=== PATIENT | female | born 1955 | race Caucasian/White ===

== ENCOUNTER 2023-08-23 08:00 | Outpatient (RCR) | payer MEDICARE, OTHER, SELFPAY ==
--- NOTE | 2023-07-15 09:58 | PT.OPEX ---
[facility] PT [facility] Out[facility] Eval Start: 07/15/23 07:47 Freq: Status: Active Protocol: Document 07/15/23 07:47 AILEENCarlota (Rec: 07/15/23 09:47 KLV [id number]) E-signed By Gabriella Godfrey, PT Physical Therapy Outpatient Evaluation Insurance Information Recert Due Date 10/09/23 Insurance Name Medicare B,Other; See Comments Insurance Information/Comments TFL Medical Diagnosis Right knee pain Treating Diagnosis Right knee pain, limited knee ROM, impaired quad and calf strength, swelling Referring MD Bonner Subjective Subjective Janette reports to PT with primary complaint of right knee pain. She has a history of a right knee scope done many years ago. On 06/10/2023 she injured her knee and leg in a zip lining accident-was trying to stop herself and ended up twisting herself backwards and leg hit the box at the end of the line. She had a laceration over the back of her knee which required closure. She had x-rays in [place] and an MRI scan of her knee at [facility] with results below. She was not able to bear much weight following the incident and mainly rested it /used walker to ambulate and step to gait on stairs. Currently she does not have any restrictions and was advised to gradually progress ROM/strength/activity as able. She was icing in the beginning but has switched to heat. Was given tubigrip for swelling which has been helpful. She currently is limited with activity tolerance with walking however not using AD anymore. She has difficulty descending stairs. She was planning on having R TKA done prior to injury as she has severe OA however now needs to rehab from this and regain ROM/strength prior to having surgery. CT angiogram of the right lower extremity dated 2022 from [facility] shows arthritis in her knee with a nondisplaced plateau fracture PMH: L TKA, R knee scope, heart condition, hypertension, arthritis Pain Comments 8/10 worst arthritis in the mornings 5/10 with swelling in the afternoons Date of Last Physician Visit 07/11/23 Occupation [employer]: sedentary Objective Other/Pertinent Objective Knee ROM: -R 0-7-108 -L 0-124 Calf circumferential measurement at tibial tubercle : -R 39.5 cm -L 34 cm No observable bruising No signs/symptoms of infection or DVT: popliteal incision closed and healing well Soleus ROM: -R 3 fingers from wall -L 1 finger from wall Heel raise: able to perform DL x10, unable to perform SL heel raise B at this time Gait: slight decrease in stance time R LE, minimal toe off R LE *of note laceration also L distal calf covered with bandage today. No observable s /s of infection at this time Hypomobility R>L patella all directions LE Strength (R/L): -Knee Ext: R: 4/5, L: 4+/5 -Knee Flex: R: 4-/5, L: 4+/5 -Hip Abd: R: 4/5, L: 4+/5 -Hip Flx: R: 4/5, L: 4+/5 Pt will demonstrate at least 4 +/5 strength MMT in quad, glut max & glut med to improve dynamic control with SLS activities and gait. Functional Test Performed & Score LEFS: 32/80 Assessment Assessment/Impression Patient is a 67 year old female presenting to physical therapy for evaluation and treatment of right knee pain following zip lining injury 09/22. Patient presents with expected limitations in ROM, strength, balance, swelling and gait. These impairments are limiting the patients ability to walk, negotiate stairs, stand for extended periods. Patient appears motivated to participate in PT and presents with good prognosis to improve mobility, strength, proprioception and return to functional activities with skilled physical therapy intervention. Primary Functional Limitations walk, negotiate stairs, stand for extended periods Plan of Care Rehabilitation Potential Good Physical Therapy Goals In 6 weeks (08/26/23) Pt will demonstrate full and pain free knee ROM in order to perform all ADLs including don/doffing shoes/socks Pt will be able to ascend/ descend 1 flight of stairs reciprocally in order to perform ADLs pain free. Pt will be able to stand for > 30 min with <2/10 pain in order to perform work related tasks In 12 weeks (09/07/23) Pt will exhibit 9 pt improvement in LEFS Outcome measure to demonstrate functional improvement and progress towards goals. Patient will walk for 60 min, reporting pain < 2/10 in order to ambulate in home and in community. Pt will be able to stand for > 60 min with <2/10 pain in order to perform work related tasks and household ADLs Treatment Plan/Direct Interventions Gait Training,Ice/Cold/ Vasopneumatic,Joint Mobilization,Manual Therapy, Neuromuscular Re-ed,Self-Care/ Home Management,Therapeutic Activities,Therapeutic Exercises Frequency/Duration 1x/wk for 6 weeks with additional 4 sessions prn based on progress Patient Will Be Discharged From Therapy Completion of LTG(s), Independent w/HEP, Independently Progressing Evaluation Billing Untimed Code Treatment Minutes 25 Complexity Low Certification Information Initial Certification Date 07/15/23 Ending Certification Date 10/09/23 Provider Signature Shows Agreement With POC & Medical Necessity Physician Signature & Date Requested Please Sign/Date Here Physician Comment/Change : Physician NPI Number #
== END 2023-08-23 09:56 | disposition home or self-care (01) ==
PROVIDERS: PCP Nurse Practitioner Family; Visit Provider Orthopaedic Surgery
DX: S89.91XA Unspecified injury of right lower leg, initial encounter (principal); M25.561 Pain in right knee; Z74.09 Other reduced mobility; R53.1 Weakness; R60.9 Edema, unspecified; Z51.89 Encounter for other specified aftercare
CPT/HCPCS: 97110; 97140; 97161

== ENCOUNTER 2023-12-01 08:19 | Day surgery (SDC) | payer MEDICARE, OTHER, SELFPAY ==
[2023-12-01] VITALS (26 sets, daily range): BP systolic 141–182; BP diastolic 60–85; PULSE 51–76; RESP 12–20; TEMP 35.8–37.1; O2SAT 85–99; BMI 35.5
[2023-12-01] MEDS: CELECOXIB 200 MG CAPSULE PO (08:40)
[2023-12-01] MEDS: ACETAMINOPHEN 500 MG TABLET 1000 MG PO ×3 (08:40→21:06)
[2023-12-01] MEDS: LACTATED RINGERS 1000 ML 1,000 ML 100 ML IV ×2 (08:45→11:32)
[2023-12-01] MEDS: SODIUM CHLORIDE 0.9 % (FLUSH) 10 ML SYRINGE IVF (08:45)
[2023-12-01] MEDS: fentaNYL 100 MCG/2 ML inj IVP (10:17)
[2023-12-01] MEDS: MIDAZOLAM HCL 1 MG/ML inj IVP (10:17)
--- NOTE | 2023-12-01 10:36 | SUR.PREOP ---
TIME?OUT:?1017 PT/kayode ortiz RN/cristy wright MDA?VERIFICATION?OF?SURGICAL?SITE,?PROCEDURE,?AND?CONSENT OBTAINED?PRIOR?TO?INVASIVE?PROCEDURE.
[2023-12-01] MEDS: CEFAZOLIN 2 GM INJ IVP (10:40)
[2023-12-01] MEDS: TRANEXAMIC ACID 100 MG/ML INJ 1000 MG IV (10:47)
--- NOTE | 2023-12-01 12:09 | CRLHL7_ITS ---
For Patients: As a result of the Cures Act, medical imaging exams and procedure reports are released immediately into your electronic medical record. You may view this report before your referring provider. If you have questions, please contact your health care provider. Indication: POST OP TKA Technique: Two views right knee Findings/Impression: Hardware from a right total knee arthroplasty is in satisfactory position. Bone alignment is normal. No sign of acute fracture. Postop changes are within normal limits. Dictated by Dagoberto Cronin MD @ 12/01/2023 2:31:17 PM (Electronically Signed)
--- NOTE | 2023-12-01 12:13 | P.ORPRC_ITS ---
Procedure Note Date of procedure: 12/01/23 Procedure: PREOPERATIVE DIAGNOSIS: Right knee osteoarthritis POSTOPERATIVE DIAGNOSIS: Right knee osteoarthritis NAME OF OPERATION: Right total knee arthroplasty SURGEON: Jose M Bonner MD REPEAT PHOTOCOMPOSING MACHINE OPERATOR: Viky Horton PA-C ANESTHESIA: Spinal ESTIMATED BLOOD LOSS: 0 mL COMPLICATIONS: None SPECIMENS: None DRAINS: None PREOPERATIVE ANTIBIOTICS: Ancef 2 grams, antibiotic impregnated cement IMPLANTS: 1. J&J Attune # 6 narrow posterior stabilized femur 2. #4 revision CRS fixed-bearing tibia, 14 mm x 50 mm cemented stem 3. #6 posterior stabilized, 6 mm fixed-bearing polyethylene 4. 38 patella INDICATIONS: The patient is a 68-year-old with a longstanding history of severe, unrelenting right knee pain secondary to end-stage (grade IV) right knee osteoarthritis. Despite appropriate nonoperative management, including activity modification, anti-inflammatories, [id number]-[id number] pain medication, bracing, physical therapy, and injections they continue to have pain and disability. Operative intervention was offered. The risks, benefits and expected outcomes were discussed in detail. These included but were not limited to: Infection, bleeding, injury to blood vessel or nerve, venous thromboembolism. All questions were answered to their satisfaction. Use of an prosthetic assistant was necessary throughout the case for patient positioning and safety, soft tissue retraction, and closure. PROCEDURE: Spinal anesthesia was administered. The patient was placed supine on the operating table. The prosthetic assistant made sure the patient was positioned appropriately. The lower extremity was prepped and draped in the usual sterile fashion. The limb was exsanguinated with the Noel bandage. The pneumatic tourniquet was inflated to 300 mmHg. A standard anterior incision was made with the knee in flexion. Subcutaneous dissection was sharply taken through fascial layer #1. Full-thickness medial and lateral flaps were elevated. The prosthetic assistant retracted the soft tissues and protected them throughout the case. A standard subvastus approach was made. The patella was subluxed. The infrapatellar fat pad was preserved. The menisci and cruciate ligaments were sharply d?brided. Marginal osteophytes were d?brided with the rongeur. The drill was used to penetrate the femoral canal. The canal was aspirated and irrigated with pulse lavage. The intramedullary femoral guide was placed for a 5-degree valgus cut, removing 10 mm off the distal femur. The saw was used to make the cut. Whitesides line and the trans epicondylar axis were marked. The femoral sizing guide was pinned onto the distal femur. Three degrees of external rotation nicely parallels the transepicondylar axis. Pins were placed for posterior referencing. The four-in-one cutting guide was pinned onto the distal femur. The anterior, posterior, and chamfer cuts were made. The prosthetic assistant protected the collateral ligaments. The box cutting guide was pinned. The box cuts were made. The boxed trial was placed and was an excellent fit. Drill holes for the lugs were made. Attention was then turned to the proximal tibia. The extramedullary tibial guide was placed for a neutral varus/valgus cut with 5 degrees of posterior slope, removing 2 mm based off the medial tibial surface. The prosthetic assistant protected the collateral ligaments and the neurovascular bundle. The saw was used to make the cut. Trial components were placed. The knee was nicely balanced in both flexion and extension. The trial components were removed. The tray was placed in appropriate rotation, parallel to our tibial cutting pins. It was pinned by the prosthetic assistant and the drill x2 was used. The stemmed tibial trial was placed. The punch was used. The tray was removed. The punch was used again. A bone plug was placed in the femoral canal. Attention was then turned to the patella. Chinik patellar thickness was 20 mm. The lobster claw resection guide was used with the 7.5 mm jyotsna. The saw was used to make the cut. Drill holes were made by the prosthetic assistant. The trial was placed and was an excellent fit. Cancellous surfaces were irrigated with pulse lavage and thoroughly dried by the prosthetic assistant. We cemented the tibial component, then the femoral component. We impacted the 6 mm polyethylene onto the tibial tray. The knee was brought into full extension. We then cemented the patellar component. Excessive cement was removed. The cement was allowed to harden. The knee was taken through a range of motion and was found to be nicely balanced in both flexion and extension. The patella tracks centrally. The prosthetic assistant did a three minute dilute Betadine solution soak. The prosthetic assistant irrigated the wound with 3 liters of normal saline via pulse lavage. The prosthetic assistant reapproximated the extensor mechanism with #1 Vicryl in an interrupted [id number] fashion. The prosthetic assistant then ran the extensor mechanism with a #1 PDO Stratafix. The prosthetic assistant closed the subcutaneous tissues with a 3-0 Stratafix and the skin with a running 3-0 Stratafix in a subcuticular fashion. Glue was used to seal the skin. The prosthetic assistant placed a dry dressing, CELSO stocking, and Polar Care. Sponge and needle counts were correct x2. The patient tolerated the procedure well. There were no apparent complications. They were carefully transferred to the hospital bed and taken to the postanesthesia care unit in satisfactory condition. PLAN: The patient will be mobilized with physical therapy. Aspirin will be used for DVT prophylaxis. They will be discharged to home once medically appropriate.
--- NOTE | 2023-12-01 12:35 | W.ANESCHARGE ---
Anesthesia Charges Start Date/Time Anesthesia Start Date: 12/01/23 Anesthesia Start Time: 10:31 Stop Date/Time Anesthesia Stop Date: 12/01/23 Anesthesia Stop Time: 13:01
--- NOTE | 2023-12-01 12:36 | P.NB_ITS ---
Nerve Block Nerve Block Time Seen by Provider: 10:20 Date Seen: 12/01/23 Type of block requested by surgeon for post-operative analgesia: geniculars Side: right Time out performed: Yes Verification of patient name: Yes Verification of date of : Yes Site marking: site marked Name of person performing procedure: Gamal Assistants, if any: olesya Continuous monitoring Was continuous monitoring of O2 sat, B/P, awake overnight monitor, recorded every 15 minutes?: Yes Procedure Checklist: sterile prep, needles and gloves Medications given in 5ml increments after negative aspiration: Ropivicaine %: 0.5 mL: 9 Needle gauge: 25 Patient tolerated procedure well: Yes Block Charges Block Charge (with Pro Fee): Genicular Nerve Block Use of Ultrasound Machine for Block: No
--- NOTE | 2023-12-01 12:36 | P.NB_ITS ---
Nerve Block Nerve Block Time Seen by Provider: 10:20 Date Seen: 12/01/23 Type of block requested by surgeon for post-operative analgesia: adductor canal Side: right Time out performed: Yes Verification of patient name: Yes Verification of date of : Yes Site marking: site marked Name of person performing procedure: Gamal Assistants, if any: Kyle Continuous monitoring Was continuous monitoring of O2 sat, B/P, color television console monitor, recorded every 15 minutes?: Yes Procedure Checklist: sterile prep, needles and gloves Ultrasound guided. Images saved: Yes Medications given in 5ml increments after negative aspiration: Ropivicaine %: 0.5 mL: 20 Needle gauge: 20 Decadron (mg): 10 Precedex (mcg): 25 Patient tolerated procedure well: Yes Additional comments: Needle noted adjacent to nerve Block Charges Block Charge (with Pro Fee): Femoral Nerve Use of Ultrasound Machine for Block: Yes- US Guidance/pain block
--- NOTE | 2023-12-01 13:06 | W.ANESCHARGE ---
Anesthesia Charges Start Date/Time Anesthesia Start Date: 12/01/23 Anesthesia Start Time: 10:31 Stop Date/Time Anesthesia Stop Date: 12/01/23 Anesthesia Stop Time: 13:05
[2023-12-01] MEDS: HYDROmorphone 0.5 mg/0.5 ml inj IVP ×2 (14:02→15:39)
--- NOTE | 2023-12-01 15:34 | PM.IMCN1 ---
Date of Consult Patient: Sim[place] Patient Consult date: 12/01/23 Requesting Physician: Orthopedics Primary Care Provider: Nyla Shipley, SUHA Consult Narrative Reason for consult: s/p R TKA, medical support Narrative: Janette Madison is a 68 year old woman who undergoes elective right total knee arthroplasty today with Dr. Jose M Bonner, orthopedic surgeon. Initial intention was to attempt spinal anesthesia. They were unable to achieve this successfully and thus converted to general anesthesia. No apparent complications. Estimated blood loss 0 mL. Review of Systems Status of ROS: Reports: 10 or more systems reviewed and unremarkable except as noted in History and below Narrative: I reviewed preoperative history and physical dated 11/22/2023. No contraindications to proceed with surgical intervention. Patient has known severe, advanced right gonarthrosis. No longer able to satisfactorily treat through nonsurgical means. Hence, patient elects to proceed with total knee arthroplasty. Laboratory studies obtained on 11/22/2023 include sodium 142, potassium 4.9, glucose 124, BUN 22, creatinine 0.9, EGFR 72. TSH 1.41. White count 6 Only limitation to her activities of Daily Living is the pain associated with her right knee. Denies chest heaviness, pressure, tightness, or pain. Denies dyspnea at rest, dyspnea with exertion, paroxysmal nocturnal dyspnea, orthopnea. Denies cough. Denies syncope or near-syncope. No nausea or vomiting. No palpitations or chest fluttering. No dependent edema. Takes her medications as prescribed. No recent travel, trauma, injury. No recent fevers, rigors, diaphoresis or any other illness. Blood pressures have been much better controlled at home lately. Patient informs me she has been attempting to lose weight and has achieved 30 lb intentional weight loss. Working with her primary care physician to possibly reduce dose of antihypertensive medications. When she was assessed in the clinic for her preoperative evaluation on 11/22/2023, her resting heart rate was 48 beats per minute. Laboratory studies obtained on 11/22/2023 include the following: Sodium 142, potassium 4.9, glucose 124, BUN 22, creatinine 0.89, EGFR 72. TSH 1.41. Total cholesterol 172 triglycerides 113 HDL cholesterol 54 LDL cholesterol 95. White blood cell count 7.1, hemoglobin 14, hematocrit 44, RDW 15.2, normal MCV and MCH, platelet count 185. [facility] Medical History (Updated 12/01/23 @ 15:48 by Yong Coburn MD) Cardiac arrhythmia ?I49.9 - Cardiac arrhythmia, unspecified (ICD-10) Hypothyroid ?E03.9 - Hypothyroidism, unspecified (ICD-10) Allergic rhinitis ?J30.9 - Allergic rhinitis, unspecified (ICD-10) Essential (primary) hypertension ?I10 - Essential (primary) hypertension (ICD-10) Surgical History (Updated 12/01/23 @ 15:46 by Yong Coburn MD) History of hysterectomy ?Z90.710 - Acquired absence of both cervix and uterus (ICD-10) H/O arthroscopy of left knee ?Z98.890 - Other specified postprocedural states (ICD-10) History of repair of ACL ?Z98.890 - Other specified postprocedural states (ICD-10) History of total left knee replacement (~2004) ?Z96.652 - Presence of left artificial knee joint (ICD-10) History of arthroscopy of right knee ?Z98.890 - Other specified postprocedural states (ICD-10) Family History Paternal Grandfather Heart disease Father High blood pressure COPD (chronic obstructive pulmonary disease) Maternal Grandmother Heart disease Social History Smoking Status: Never smoker Do you use any of these nicotine containing products: None Second hand tobacco smoke exposure: No How often do you have a drink containing alcohol: monthly or less AUDIT-C Alcohol total score: 1 Non-prescribed substance use: denies use Caffeine: Yes Meds Home Medications and Allergies Home Medications Medication Instructions Recorded Confirmed Type hydrochlorothiazide 12.5 mg tablet 12.5 mg PO DAILY 06/22/23 12/01/23 History levothyroxine 112 mcg tablet 112 mcg PO DAILY 06/22/23 12/01/23 History losartan 50 mg tablet 50 mg PO DAILY 06/22/23 12/01/23 History metoprolol tartrate 50 mg tablet 50 mg PO BID 06/22/23 12/01/23 History potassium chloride 20 mEq 20 meq PO DAILY 06/22/23 12/01/23 History tablet,extended release(part/cryst) Allergies Allergy/AdvReac Type Severity Reaction Status Date / Time codeine AdvReac Nausea Verified 12/01/23 09:02 diazepam [From Valium] AdvReac Drowsy Verified 12/01/23 09:02 morphine AdvReac Nausea Verified 12/01/23 09:02 trimethobenzamide AdvReac neck and Verified 12/01/23 09:02 [From Tigan] head paralysis Exam Narrative: Exam Narrative: I examined patient in her hospital room. She appears comfortable and in no acute distress. Vision and hearing are grossly normal. Alert and oriented to self, place, time, situation. Friendly, articulate, cooperative. Conjugate gaze. No icterus. Midline septum. Dentition in good repair. Buccal mucosa is moist. Neck is supple. Midline trachea. No JVD, hepatojugular reflux, or carotid bruits. No head or neck lymphadenopathy. Moves all 4 extremities. Lungs are clear to auscultation. No wheezing, rhonchi, or rales. Chest wall excursions are full. No CVA discomfort with thumping. Heart tones with regular rhythm, normal S1-S2. Soft systolic murmur right upper sternal border and left lower sternal border. No gallops or rubs. PMI not laterally displaced. Abdomen with active bowel sounds, soft, nontender. No organomegaly or masses. Extremities without edema. Const: Vital Signs, click to edit/add: Vital Signs - 24 hr 12/01/23 09:07 12/01/23 10:17 12/01/23 10:20 Temperature 97.9 F Pulse Rate 54 L 56 L 53 L Pulse Rate [Pulse Oximeter] Respiratory Rate 16 16 16 Blood Pressure 176/70 H 160/70 H 147/61 H Blood Pressure [Ri ght Arm] Pulse Oximetry 95 95 95 Oxygen Delivery Me thod Room Air Nasal Cannula Nasal Cannula Oxygen Flow Rate 3.5 3.5 12/01/23 10:25 12/01/23 13:00 12/01/23 13:05 Temperature 97.4 F L Pulse Rate 52 L 70 75 Pulse Rate [Pulse Oximeter] Respiratory Rate 16 12 16 Blood Pressure 145/65 H 141/77 H 146/80 H Blood Pressure [Ri ght Arm] Pulse Oximetry 95 94 95 Oxygen Delivery Me thod Nasal Cannula OxyMask OxyMask Oxygen Flow Rate 3.5 10 10 12/01/23 13:10 12/01/23 13:15 12/01/23 13:20 Temperature 97.5 F L Pulse Rate 76 75 71 Pulse Rate [Pulse Oximeter] Respiratory Rate 18 18 18 Blood Pressure 145/85 H 145/83 H 144/81 H Blood Pressure [Ri ght Arm] Pulse Oximetry 98 99 96 Oxygen Delivery Me thod OxyMask OxyMask Blow By Oxygen Flow Rate 10 5 5 12/01/23 13:25 12/01/23 13:32 12/01/23 13:45 Temperature 97.3 F L 96.5 F L Pulse Rate 71 66 59 L Pulse Rate [Pulse Oximeter] Respiratory Rate 16 16 16 Blood Pressure 142/81 H 150/81 H Blood Pressure [Ri ght Arm] 182/81 H Pulse Oximetry 96 96 Oxygen Delivery Me thod Room Air Room Air Room Air Oxygen Flow Rate 12/01/23 14:00 12/01/23 14:15 12/01/23 14:30 Temperature 96.9 F L 97 F L Pulse Rate Pulse Rate [Pulse Oximeter] 55 L 57 L 51 L Respiratory Rate 16 16 16 Blood Pressure Blood Pressure [Ri ght Arm] 167/82 H 169/75 H 167/70 H Pulse Oximetry 94 95 94 Oxygen Delivery Me thod Nasal Cannula Nasal Cannula Nasal Cannula Oxygen Flow Rate 2 2 2 12/01/23 14:45 12/01/23 15:00 12/01/23 15:00 Temperature 97.5 F L 98.0 F Pulse Rate Pulse Rate [Pulse Oximeter] 61 60 60 Respiratory Rate 16 16 Blood Pressure Blood Pressure [Ri ght Arm] 163/73 H 172/72 H Pulse Oximetry 95 97 Oxygen Delivery Me thod Nasal Cannula Nasal Cannula Oxygen Flow Rate 2 2 12/01/23 15:15 Temperature 98.0 F Pulse Rate Pulse Rate [Pulse Oximeter] 60 Respiratory Rate 16 Blood Pressure Blood Pressure [Ri ght Arm] 172/72 H Pulse Oximetry 97 Oxygen Delivery Me thod Nasal Cannula Oxygen Flow Rate 2 Documenting provider has reviewed patient's vital signs: yes Assessment and Plan Assessment and plan (1) Osteoarthritis of right knee: Status: Acute (2) Status post total knee replacement, right: Status: Acute (3) Postoperative hypoxemia: Status: Acute (4) Postoperative bradycardia: Status: Acute (5) Essential (primary) hypertension: Status: Acute Plan 1. Reviewed impression with patient 2. Encourage safe activity. Will work with physical and occupational therapy. 3. Incentive spirometry. 4. Monitor and supply oxygen support as needed. 5. Continue usual antihypertensive medications for now. 6. Recommended patient follow-up with primary care physician in regard to the possibility of possibly decreasing the dose of her beta-diane hereafter such as 25 mg p.o. b.i.d. rather than current dose of 50 mg p.o. b.i.d. 7. Telemetry postoperatively. Consider decrease dose of beta-diane if bradycardia is persistent or worrisome. 8. Agree with perioperative antibiotic prophylaxis. 9. Agree with postoperative venous thromboembolism prophylaxis. 10. Patient agreeable with above stated plans and recommendations.
[2023-12-01] MEDS: CEFAZOLIN 2 GM in 0.9 % SODIUM CHLORIDE Mini-bag 100 ML IVPB (16:47)
[2023-12-01] MEDS: OXYCODONE 5 MG TABLET PO (18:39)
--- NOTE | 2023-12-01 19:43 | PC.NURSE ---
End of shift: Patient is alert and oriented, tolerating a reg diet. dressing to right knee C/D/I. IV is patent and SL. Patient rated pain 5/10 PRN oxy administered. Patient up to chair for meals and BR with walker. Patient's VSS. Sinus Burt on Tele.
[2023-12-01] MEDS: ASPIRIN 81 MG TABLET EC PO (21:06)
[2023-12-01] MEDS: SENNOSIDES 1 TAB TABLET 2 TAB PO (21:06)
[2023-12-01] MEDS: METOPROLOL TARTRATE 50 MG TABLET PO (21:53)
[2023-12-02] MEDS: CEFAZOLIN 2 GM in 0.9 % SODIUM CHLORIDE Mini-bag 100 ML IVPB (01:44)
[2023-12-02] MEDS: ACETAMINOPHEN 500 MG TABLET 1000 MG PO ×2 (02:35→10:43)
[2023-12-02 02:49] VITALS: BP 149/62; PULSE 55; RESP 18; TEMP 36.6; O2SAT 96
[2023-12-02 03:52] VITALS: PULSE 54
[2023-12-02 06:19] LABS: Basophils Absolute Auto 0.01 K/uL (0.00-0.30); Basophils Percent Auto 0.1 % (0.0-3.0); Eosinophils Absolute Auto 0.01 K/uL (0.00-0.50); Eosinophils Percent Auto 0.1 % (0.0-7.0); Hemoglobin* 12.7 gm/dL (12.0-16.0); Immature Granulocytes Abs Auto 0.01 K/uL (0.00-0.30); Immature Granulocytes Pct Auto 0.1 %; Lymphocytes Percent Auto 13.2 % (20-44); Mean Corpuscular HGB Conc 33 gm/dL (32-36); Mean Corpuscular Hemoglobin 30 pg (26-34); Mean Corpuscular Volume 92 fL (80-100); Monocytes Percent Auto 7.3 % (0.0-11.0); Neutrophils Percent Auto 79.2 % (42.0-72.0); Platelet Count* 188 K/uL (140-440); RDW Coefficient of Variation % 14.5 % (11.5-15.5); Red Blood Count 4.25 m/uL (4.00-5.20); White Blood Count* 10.88 K/uL (4.50-11.00)
[2023-12-02 06:24] LABS: Slide Review Reflex No
[2023-12-02 06:35] LABS: Potassium* 4.3 mmol/L (3.6-5.1); Sodium* 140 mmol/L (135-149)
[2023-12-02 06:37] LABS: INR 1.04 (0.91-1.10); Prothrombin Time 14.2 Seconds
[2023-12-02] MEDS: LEVOTHYROXINE 112 MCG TABLET PO (06:37)
[2023-12-02 06:38] LABS: Creatinine* 0.6 mg/dL (0.5-1.5); Est. Creatinine Clearance* 41.76; Estimated Glomerular Filt Rate 99 ml/min
[2023-12-02 06:39] LABS: Blood Urea Nitrogen* 17 mg/dL (7-30)
[2023-12-02 07:00] VITALS: PULSE 60
[2023-12-02 08:21] VITALS: BP 149/99; PULSE 63; RESP 18; TEMP 36.7; O2SAT 97
--- NOTE | 2023-12-02 08:25 | PM.ORPN ---
Subjective Subjective Time Seen by Provider: 07:10 Date Seen: 12/02/23 Principal diagnosis: Status post right knee replacement Interval history: Janette is comfortable this morning. She has ambulated around med surge. This went well. She has no nausea or vomiting. She plans to discharge today. Ortho Exam Narrative Exam Narrative: Alert and oriented x3. Patient is in no acute distress. Converses without labored breathing. Hearing is grossly intact. Ambulates with a walker. Examination of the right lower extremity shows the dressing is intact, no erythema or warmth or sign of infection. Mild effusion. Mild soft tissue edema. No ecchymosis. Bilateral calves are soft and nontender. Quad strength 5/5. CMS intact right lower extremity. Const Vital Signs, click to edit/add: Vital Signs - 24 hr 12/01/23 09:07 12/01/23 10:17 12/01/23 10:20 Temperature 97.9 F Pulse Rate 54 L 56 L 53 L Pulse Rate [Pulse Oximeter] Respiratory Rate 16 16 16 Blood Pressure 176/70 H 160/70 H 147/61 H Blood Pressure [Right Arm] Pulse Oximetry 95 95 95 Oxygen Delivery Method Room Air Nasal Cannula Nasal Cannula Oxygen Flow Rate 3.5 3.5 12/01/23 10:25 12/01/23 13:00 12/01/23 13:05 Temperature 97.4 F L Pulse Rate 52 L 70 75 Pulse Rate [Pulse Oximeter] Respiratory Rate 16 12 16 Blood Pressure 145/65 H 141/77 H 146/80 H Blood Pressure [Right Arm] Pulse Oximetry 95 94 95 Oxygen Delivery Method Nasal Cannula OxyMask OxyMask Oxygen Flow Rate 3.5 10 10 12/01/23 13:10 12/01/23 13:15 12/01/23 13:20 Temperature 97.5 F L Pulse Rate 76 75 71 Pulse Rate [Pulse Oximeter] Respiratory Rate 18 18 18 Blood Pressure 145/85 H 145/83 H 144/81 H Blood Pressure [Right Arm] Pulse Oximetry 98 99 96 Oxygen Delivery Method OxyMask OxyMask Blow By Oxygen Flow Rate 10 5 5 12/01/23 13:25 12/01/23 13:32 12/01/23 13:45 Temperature 97.3 F L 96.5 F L Pulse Rate 71 66 59 L Pulse Rate [Pulse Oximeter] Respiratory Rate 16 16 16 Blood Pressure 142/81 H 150/81 H Blood Pressure [Right Arm] 182/81 H Pulse Oximetry 96 96 Oxygen Delivery Method Room Air Room Air Room Air Oxygen Flow Rate 12/01/23 14:00 12/01/23 14:15 12/01/23 14:30 Temperature 96.9 F L 97 F L Pulse Rate Pulse Rate [Pulse Oximeter] 55 L 57 L 51 L Respiratory Rate 16 16 16 Blood Pressure Blood Pressure [Right Arm] 167/82 H 169/75 H 167/70 H Pulse Oximetry 94 95 94 Oxygen Delivery Method Nasal Cannula Nasal Cannula Nasal Cannula Oxygen Flow Rate 2 2 2 12/01/23 14:45 12/01/23 15:00 12/01/23 15:00 Temperature 97.5 F L 98.0 F Pulse Rate Pulse Rate [Pulse Oximeter] 61 60 60 Respiratory Rate 16 16 Blood Pressure Blood Pressure [Right Arm] 163/73 H 172/72 H Pulse Oximetry 95 97 Oxygen Delivery Method Nasal Cannula Nasal Cannula Oxygen Flow Rate 2 2 12/01/23 15:15 12/01/23 15:30 12/01/23 16:00 Temperature 98.0 F 98.0 F 98.0 F Pulse Rate Pulse Rate [Pulse Oximeter] 60 59 L 60 Respiratory Rate 16 16 16 Blood Pressure Blood Pressure [Right Arm] 172/72 H 167/77 H 151/60 H Pulse Oximetry 97 98 98 Oxygen Delivery Method Nasal Cannula Nasal Cannula Nasal Cannula Oxygen Flow Rate 2 2 2 12/01/23 17:00 12/01/23 17:05 12/01/23 18:00 Temperature 98.0 F 98.0 F Pulse Rate 52 L Pulse Rate [Pulse Oximeter] 59 L 66 Respiratory Rate 16 16 Blood Pressure Blood Pressure [Right Arm] 146/64 H 152/70 H Pulse Oximetry 91 93 Oxygen Delivery Method Room Air Room Air Oxygen Flow Rate 12/01/23 19:00 12/01/23 19:00 12/01/23 19:45 Temperature 98.0 F 98.7 F 98.7 F Pulse Rate Pulse Rate [Pulse Oximeter] 71 63 63 Respiratory Rate 16 20 20 Blood Pressure Blood Pressure [Right Arm] 154/65 H 157/78 H 157/78 H Pulse Oximetry 90 96 Oxygen Delivery Method Room Air Room Air Room Air Oxygen Flow Rate 12/01/23 23:00 12/01/23 23:00 12/02/23 02:49 Temperature 98.2 F 97.8 F Pulse Rate Pulse Rate [Pulse Oximeter] 52 L 55 L Respiratory Rate 18 18 Blood Pressure Blood Pressure [Right Arm] 153/67 H 149/62 H Pulse Oximetry 93 93 96 Oxygen Delivery Method Nasal Cannula Nasal Cannula Nasal Cannula Oxygen Flow Rate 0.5 0.5 1 12/02/23 03:52 Temperature Pulse Rate 54 L Pulse Rate [Pulse Oximeter] Respiratory Rate Blood Pressure Blood Pressure [Right Arm] Pulse Oximetry Oxygen Delivery Method Oxygen Flow Rate Assessment and Plan Assessment and plan (1) Status post total knee replacement, right: Problem details: 12/01/2023 Status: Acute Assessment and Plan: The patient is doing very well at this time. Plan for discharge is today to home if they meet discharge criteria. DVT prophylaxis includes aspirin 81 mg twice daily x1 month, Jonathan stockings x1 month may remove for 1 hr per day, frequent ambulation Remove dressing in 1 week. Observe wound and phone Orthopedics with any questions or concerns Return to clinic in 1 week for a wound check Return to clinic in 6 weeks with surgeon Minimize narcotic use. Wean off and discontinue soon as possible. Activities as tolerated. No strenuous activity. Outpatient physical therapy as scheduled. Ice and elevate the operative extremity. No restriction on ice.
[2023-12-02] MEDS: SENNOSIDES 1 TAB TABLET 2 TAB PO (08:32)
[2023-12-02] MEDS: hydroCHLOROthiazide 12.5 MG CAPSULE PO (08:32)
[2023-12-02] MEDS: POTASSIUM CHLORIDE 10 MEQ CAPSULE ER 20 MEQ PO (08:32)
[2023-12-02] MEDS: ASPIRIN 81 MG TABLET EC PO (08:34)
[2023-12-02] MEDS: OXYCODONE 5 MG TABLET PO (08:34)
[2023-12-02] MEDS: METOPROLOL TARTRATE 50 MG TABLET PO (08:34)
[2023-12-02] MEDS: LOSARTAN POTASSIUM 50 MG TABLET PO (08:35)
[2023-12-02 10:44] VITALS: BP 150/63; RESP 18
== END 2023-12-02 10:45 | disposition home or self-care (01) ==
LOC: OR 08:22 → MEDSURG 08:24
PROVIDERS: PCP Nurse Practitioner Family; Visit Provider Orthopaedic Surgery
PROC: (CPT 27447; principal; 2023-12-01 10:15)
DX: M17.11 Unilateral primary osteoarthritis, right knee (principal); G89.18 Other acute postprocedural pain; I10 Essential (primary) hypertension; R09.02 Hypoxemia; I97.191 Other postprocedural cardiac functional disturbances following other surgery; R00.1 Bradycardia, unspecified
CPT/HCPCS: 27447; 01402; 36415; 64447; 64454; 73560; 76942; 82565; 84132; 84295; 84520; 85025; 85610; 97110; 97116; 97161; 97165; 97535; A9270; C1776; J0690; J1100; J1170; J1630; J2250; J2405; J2704; J2795; J3010; J3490; J7120

== ENCOUNTER 2024-12-10 13:34 | Outpatient (CLI) | payer MEDICARE, OTHER, SELFPAY | END 2024-12-10 13:35 | disposition home or self-care (01) | PROVIDERS: PCP Nurse Practitioner Family; Visit Provider Orthopaedic Surgery | DX: M25.511 Pain in right shoulder (principal); M75.121 Complete rotator cuff tear or rupture of right shoulder, not specified as traumatic; S46.811A Strain of other muscles, fascia and tendons at shoulder and upper arm level, right arm, initial encounter; S46.211A Strain of muscle, fascia and tendon of other parts of biceps, right arm, initial encounter; M19.011 Primary osteoarthritis, right shoulder; M25.411 Effusion, right shoulder | CPT/HCPCS: 73221 ==

== ENCOUNTER 2025-01-08 07:29 | Day surgery (SDC) | payer MEDICARE, OTHER, SELFPAY ==
[2025-01-08] VITALS (23 sets, daily range): BP systolic 103–151; BP diastolic 52–95; PULSE 48–79; RESP 12–34; TEMP 36.3–36.9; O2SAT 89–97; BMI 41.0
[2025-01-08] MEDS: SODIUM CHLORIDE 0.9 % (FLUSH) 10 ML SYRINGE IVF (08:00)
[2025-01-08] MEDS: ACETAMINOPHEN 500 MG TABLET 1000 MG PO ×3 (08:00→20:32)
[2025-01-08] MEDS: LACTATED RINGERS 1000 ML 1,000 ML 100 ML IV ×2 (08:00→11:22)
[2025-01-08] MEDS: CELECOXIB 200 MG CAPSULE PO (08:10)
[2025-01-08] MEDS: fentaNYL 100 MCG/2 ML inj IVP (08:51)
[2025-01-08] MEDS: MIDAZOLAM HCL 1 MG/ML inj IVP (08:51)
--- NOTE | 2025-01-08 08:59 | SUR.PREOP ---
TIME?OUT:?0850 PT/RN/MDA?VERIFICATION?OF?SURGICAL?SITE,?PROCEDURE,?AND?CONSENT OBTAINED?PRIOR?TO?INVASIVE?PROCEDURE.
[2025-01-08] MEDS: CEFAZOLIN 2 GM INJ IVP (09:54)
[2025-01-08] MEDS: TRANEXAMIC ACID 100 MG/ML INJ 1000 MG IV (09:54)
--- NOTE | 2025-01-08 10:08 | W.ANESCHARGE ---
Anesthesia Charges Start Date/Time Anesthesia Start Date: 01/08/25 Anesthesia Start Time: 09:21 Stop Date/Time Anesthesia Stop Date: 01/08/25 Anesthesia Stop Time: 12:00 Coding CPT Codes CPT Codes: ANESTH SHOULDER REPLACEMENT - 89208 ([id number]) P2 - PATIENT W/MILD SYST DISEASE, QK - EDUCATIONAL ADMINISTRATION TEACHER 2-4 CNCRNT ANES PROC, QX - SERVICE ORDER TAKER SVC W/ MD MED DIRECTION
--- NOTE | 2025-01-08 10:09 | W.PM.NB ---
Nerve Block Nerve Block Time Seen by Provider: 08:52 Date Seen: 01/08/25 Type of block requested by surgeon for post-operative analgesia: supraclavicular Side: right Time out performed: Yes Verification of patient name: Yes Verification of date of : Yes Site marking: site marked Name of person performing procedure: Gamal Continuous monitoring Was continuous monitoring of O2 sat, B/P, desk monitor, recorded every 15 minutes?: Yes Procedure Checklist: sterile prep, needles and gloves Ultrasound guided. Images saved: Yes Medications given in 5ml increments after negative aspiration: Marcaine %: 0.5 mL: 15 Needle gauge: 22 Precedex (mcg): 25 Patient tolerated procedure well: Yes Block Charges Block Charge (with Pro Fee): Brachial Plexus Use of Ultrasound Machine for Block: Yes- US Guidance/pain block
--- NOTE | 2025-01-08 11:21 | PM.ORPRC ---
Procedure Note Date of procedure: 01/08/25 Procedure: PREOPERATIVE DIAGNOSIS: Right shoulder rotator cuff tear arthropathy POSTOPERATIVE DIAGNOSIS: Right shoulder rotator cuff tear arthropathy NAME OF OPERATION: Right upper extremity reverse shoulder arthroplasty SURGEON: Jose M Bonner MD SOMMELIER: Viky Horton PA-C, Shadi aSntos PA-C ANESTHESIA: General endotracheal ESTIMATED BLOOD LOSS: 100 mL COMPLICATIONS: None SPECIMENS: None DRAINS: None PREOPERATIVE ANTIBIOTICS: Ancef 2 grams IMPLANTS: 1. Tornier 25mm x 35mm baseplate 2. 36mm standard glenosphere 3. 5B humeral stem 4. High eccentric +0 humeral tray 5. 36mm +6 polyethylene INDICATIONS: The patient is a 69-year-old with a longstanding history of severe, unrelenting right shoulder pain secondary to rotator cuff tear arthropathy. Despite appropriate nonoperative management, including activity modification, anti-inflammatories, [id number] pain medication, physical therapy, and injections they continue to have pain and disability. Operative intervention was offered. The risks, benefits and expected outcomes were discussed in detail. These included but were not limited to: Infection, bleeding, injury to blood vessel or nerve, venous thromboembolism. All questions were answered to their satisfaction. Use of an dairy and food laboratory assistant was necessary throughout the case for patient positioning and safety, soft tissue retraction, and closure. PROCEDURE: General anesthesia was administered. The patient was placed in the lazy beach chair position on the operating room table. The right upper extremity was prepped and draped in the usual sterile fashion. A standard deltopectoral incision was made. Subcutaneous dissection was taken with electrocautery to the deltopectoral interval. The cephalic vein was mobilized, lateral branches were cauterized. The vein was ligated and divided. We bluntly entered the deltopectoral interval. We freed up the deltoid. The upper 1/3 of the insertion of the pectoralis was divided with cautery. The static retractor was placed. The clavipectoral fascia and CA ligament were divided. The circumflex vessels were controlled with electrocautery. The biceps was torn and retracted out of the field. Two fiberWire sutures were placed in the subscapularis. The subscap was subperiosteally elevated off of the lesser tuberosity. The humeral head was delivered into the wound. The entirety of the rotator cuff is torn and retracted. There is a central area of at least grade 3 change on the humeral head. The intramedullary humeral cutting guide was placed. We made the cut at the anatomic neck, in 30? of retroversion. Humeral sounds were used to assess the diameter of the canal. The broach was placed and had good rotational stability. The calcar reamer was used and the protective base plate cover was placed. Attention was then turned to the glenoid. Hohmann retractors were placed posteriorly. The labrum and biceps stump were sharply debrided. The origin of the inferior glenohumeral ligaments were subperiosteally released off of the glenoid. The drill guide was placed. The guide pin was placed in 0? of cephalic tilt. The reamer was used to bleeding bone. The central drill was used x2. The tap was used. The standard base plate was placed. This had excellent purchase. Locking screws x 2 were placed. The glenosphere was placed, the set screw was tightened. Attention then returned to the humerus. We placed a high eccentric standard base plate and standard poly. We reduced the shoulder and took it through a range of motion. It was found to be stable with appropriate soft tissue tension. Trial humeral components were removed. We placed #2 FiberWire sutures in the lesser tuberosity for subsequent subscap repair. We assembled the humeral component on the back table. We placed it in the center of our subscapularis repair sutures and tapped it down to our humeral cut. This had excellent purchase. The shoulder was reduced and again was found to be stable with appropriate soft tissue tension. We did a 3 min dilute Betadine solution soak. We irrigated the wound with 3 L of normal saline via pulse lavage. We repaired the subscapularis to the lesser tuberosity with our previously placed FiberWire sutures. The deltopectoral interval was loosely reapproximated with an 0 Vicryl in an interrupted [id number] fashion. Subcutaneous tissues were closed with the 2-0 Vicryl and a running 3-0 Monocryl suture. The skin was sealed with glue. A dry dressing and sling were applied. Sponge and needle counts were correct x2. The patient tolerated the procedure well, there were no apparent complications. They were awakened and extubated in the operating room, taken to the postanesthesia care unit in satisfactory condition. PLAN: The patient will be mobilized with physical therapy. The sling will be used for 6 weeks postoperatively. Active range of motion in forward flexion and abduction as tolerates. No external rotation greater than 0? for 6 weeks postoperatively. They will be discharged to home once medically appropriate.
--- NOTE | 2025-01-08 12:02 | W.ANESCHARGE ---
Anesthesia Charges Start Date/Time Anesthesia Start Date: 01/08/25 Anesthesia Start Time: 09:21 Stop Date/Time Anesthesia Stop Date: 01/08/25 Anesthesia Stop Time: 12:00 Coding CPT Codes CPT Codes: ANESTH SHOULDER REPLACEMENT - 36204 ([id number]) P3 - PATIENT W/SEVERE SYS DISEASE, QK - MEDIA DEVELOPER 2-4 CNCRNT ANES PROC, QX - SHIRT IRONER SUPERVISOR SVC W/ MD MED DIRECTION
[2025-01-08] MEDS: LACTATED RINGERS 1000 ML 1,000 ML 75 ML IV (13:00)
[2025-01-08 13:27] LABS: Hepatitis B Surface Antigen* Negative (Negative)
[2025-01-08 13:37] LABS: HIV 1/2/P24 Combo Screen* Negative (Negative)
[2025-01-08 13:45] LABS: Hepatitis C Virus Antibody* Negative (Negative)
[2025-01-08] MEDS: BENZOCAINE/MENTHOL 1 EACH LOZENGE MUCOUS MEM (14:54)
--- NOTE | 2025-01-08 15:14 | PM.IMCN1 ---
Date of Consult Patient: [place]ba Patient Consult date: 01/08/25 Requesting Physician: Orthopedics Primary Care Provider: Nyla Shipley CNP Consult Narrative Reason for consult: Medical management Narrative: Janette Madison is a 69 year old female past medical history significant for hypertension, diabetes mellitus type 2, hyperlipidemia, cardiac arrhythmia, allergic rhinitis, hypothyroidism is POD#0 s/p right upper extremity reverse shoulder arthroplasty, Dr. Bonner. There have been no perioperative complications or nursing concerns reported. Estimated total blood loss documented as 100 ml. Updated and reviewed the active medical problems, past medical history, past surgical history, social history, allergies and medications in our electronic EMR. Postoperatively, patient reports very little pain. Block of right shoulder slowly beginning to wear off. Able to move 4th and 5th digits. Has a mild headache. Denies dizziness. Denies chest pain or shortness of breath. Has been mildly nauseous but this is not uncommon for her postoperatively. Usually manages with crackers and bhargavi irais. Review of Systems Narrative: REVIEW OF SYSTEMS: Complete review of systems performed and negative unless otherwise stated in HPI or below. [facility] Medical History (Updated 01/08/25 @ 16:09 by Audelia Steen PA-C) Diabetes mellitus type 2, noninsulin dependent ?E11.9 - Type 2 diabetes mellitus without complications (ICD-10) Cardiac murmur ?R01.1 - Cardiac murmur, unspecified (ICD-10) Hyperlipidemia ?E78.5 - Hyperlipidemia, unspecified (ICD-10) Postoperative hypoxemia ?R09.02 - Hypoxemia (ICD-10) ?Z98.890 - Other specified postprocedural states (ICD-10) Postoperative bradycardia ?I97.89 - Other postprocedural complications and disorders of the circulatory system, not elsewhere classified (ICD-10) Rotator cuff tear, right ?M75.101 - Unspecified rotator cuff tear or rupture of right shoulder, not specified as traumatic (ICD-10) Osteoarthritis of right shoulder ?M19.011 - Primary osteoarthritis, right shoulder (ICD-10) Arthritis of right acromioclavicular joint ?M19.011 - Primary osteoarthritis, right shoulder (ICD-10) New onset type 2 diabetes mellitus ?E11.9 - Type 2 diabetes mellitus without complications (ICD-10) Cardiac arrhythmia ?I49.9 - Cardiac arrhythmia, unspecified (ICD-10) Hypothyroid ?E03.9 - Hypothyroidism, unspecified (ICD-10) Allergic rhinitis ?J30.9 - Allergic rhinitis, unspecified (ICD-10) Essential (primary) hypertension ?I10 - Essential (primary) hypertension (ICD-10) Surgical History Status post total knee replacement, 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) ?Z96.651 - Presence of right artificial knee joint (ICD-10) History of arthroplasty of right knee (12/01/23) ?Z96.651 - Presence of right artificial knee joint (ICD-10) History of hysterectomy ?Z90.710 - Acquired absence of both cervix and uterus (ICD-10) H/O arthroscopy of left knee ?Z98.890 - Other specified postprocedural states (ICD-10) History of repair of ACL ?Z98.890 - Other specified postprocedural states (ICD-10) History of total left knee replacement (~2004) ?Z96.652 - Presence of left artificial knee joint (ICD-10) History of arthroscopy of right knee ?Z98.890 - Other specified postprocedural states (ICD-10) Family History Paternal Grandfather Heart disease Father High blood pressure COPD (chronic obstructive pulmonary disease) Maternal Grandmother Heart disease Social History What is your current living situation?: I presently have a place to live Problems where you live: no known problems In past 12 months, lack of transportation kept you from medical appts, meetings, work, or getting things needed for daily living: no In the past 12 mos, have been you worried that your food would run out before you had money to buy more?: never true In the past 12 mos, the food you bought just didn't last and you didn't have money to buy more?: never true Highest level of school completed/degree received: Associate degree: occupational, technical, vocational program Smoking Status: Never smoker Do you use any of these nicotine containing products: None Second hand tobacco smoke exposure: No How often do you have a drink containing alcohol: 2-4 times a month Alcohol type: wine and hard liquor How many standard drinks containing alcohol do you have on a typical day: 1 or 2 How often do you have six or more drinks on one occasion: Never AUDIT-C Alcohol total score: 2 Non-prescribed substance use: denies use Caffeine: Yes How often does anyone, including family, friends and others, physically hurt you: never How often does anyone, including family, friends and others, insult or talk down to you: never How often does anyone, including family, friends and others, threaten you with harm: never How often does anyone, including family, friends and others, scream or curse at you: never service: No Meds Home Medications and Allergies Home Medications ?Medication ?Instructions ?Recorded ?Confirmed ?Type hydrochlorothiazide 12.5 mg tablet 12.5 mg PO DAILY 06/22/23 01/08/25 History levothyroxine 112 mcg tablet 112 mcg PO DAILY 06/22/23 01/08/25 History losartan 50 mg tablet 50 mg PO DAILY 06/22/23 01/08/25 History metoprolol tartrate 50 mg tablet 50 mg PO BID 06/22/23 01/08/25 History potassium chloride 20 mEq 20 meq PO DAILY 06/22/23 01/08/25 History tablet,extended release(part/cryst) atorvastatin 40 mg tablet 40 mg PO HS 01/04/25 01/08/25 History metformin 500 mg tablet 500 mg PO BID 01/04/25 01/08/25 History Allergies Allergy/AdvReac Type Severity Reaction Status Date / Time Sulfa (Sulfonamide Allergy angioedema Verified 01/08/25 09:07 Antibiotics) codeine AdvReac Nausea Verified 01/08/25 09:07 diazepam (From Valium) AdvReac Drowsy Verified 01/08/25 09:07 morphine AdvReac Nausea Verified 01/08/25 09:07 trimethobenzamide (From AdvReac neck and Verified 01/08/25 09:07 Tigan) head paralysis Exam Narrative: Exam Narrative: PHYSICAL EXAM General: Pleasant, conversant, NAD HEENT: Normocephalic, atraumatic, sclera white, EOMI, oral mucosa moist Cardiovascular: RRR, S1S2. No pitting edema Pulmonary: CTA bilaterally without rhonchi, rales, expiratory wheezes. No dyspnea Neurological: Alert, answering questions appropriately, cranial nerves intact, no focal findings Extremities: No gross joint deformity or swelling. Postoperative dressing in place, dry. Immobilizer in place. Neurovascularly intact Skin: Warm, dry. Const: Vital Signs, click to edit/add: Vital Signs - 24 hr 01/08/25 07:47 01/08/25 08:52 01/08/25 08:55 Temperature 98.5 F Pulse Rate 48 L 53 L 50 L Respiratory Rate 16 16 16 Blood Pressure 151/69 H 147/61 H 145/84 H Pulse Oximetry 96 96 92 Oxygen Delivery Me thod Room Air Nasal Cannula Nasal Cannula Oxygen Flow Rate 2 4 01/08/25 09:00 01/08/25 11:55 01/08/25 12:00 Temperature 97.8 F Pulse Rate 49 L 64 65 Respiratory Rate 16 12 16 Blood Pressure 130/66 136/67 134/65 Pulse Oximetry 97 93 92 Oxygen Delivery Me thod Nasal Cannula OxyMask OxyMask Oxygen Flow Rate 4 10 10 01/08/25 12:05 01/08/25 12:10 01/08/25 12:15 Temperature Pulse Rate 74 67 61 Respiratory Rate 22 34 H 18 Blood Pressure 116/52 L 112/60 112/54 L Pulse Oximetry 93 94 94 Oxygen Delivery Me thod OxyMask OxyMask OxyMask Oxygen Flow Rate 10 10 8 01/08/25 12:20 01/08/25 12:25 01/08/25 12:30 Temperature 97.6 F Pulse Rate 59 L 65 65 Respiratory Rate 18 18 18 Blood Pressure 111/60 104/75 103/58 L Pulse Oximetry 96 96 95 Oxygen Delivery Me thod OxyMask OxyMask Nasal Cannula OxyM ask Oxygen Flow Rate 6 6 3 01/08/25 12:40 01/08/25 13:00 01/08/25 13:15 Temperature 97.7 F 97.7 F 97.4 F L Pulse Rate 61 57 L 56 L Respiratory Rate 18 18 18 Blood Pressure 122/68 120/56 L 128/95 H Pulse Oximetry 92 91 94 Oxygen Delivery Me thod Nasal Cannula Nasal Cannula Nasal Cannula Oxygen Flow Rate 3 3 3 01/08/25 13:30 01/08/25 13:45 01/08/25 14:00 Temperature 97.4 F L 97.5 F L Pulse Rate 56 L 54 L 57 L Respiratory Rate 16 18 18 Blood Pressure 112/59 L 118/52 L 120/60 Pulse Oximetry 94 93 93 Oxygen Delivery Me thod Nasal Cannula Nasal Cannula Nasal Cannula Oxygen Flow Rate 3 3 3 01/08/25 14:30 Temperature Pulse Rate 63 Respiratory Rate 16 Blood Pressure 115/52 L Pulse Oximetry 93 Oxygen Delivery Me thod Nasal Cannula Oxygen Flow Rate 2 Assessment and Plan Assessment and plan (1) Osteoarthritis of right shoulder: Problem comment: -POD#0 s/p right upper extremity reverse shoulder arthroplasty, Dr. Bonner -perioperative management including pain management and anticoagulation per Orthopedic surgery -encourage postoperative pulmonary hygiene -PT OT consults -plan to discharge home with spose tomorrow Status: Acute (2) Essential (primary) hypertension: Problem comment: Continue losartan, metoprolol, HCTZ, potassium Status: Acute (3) Hyperlipidemia: Problem comment: Has been prescribed Lipitor but has not yet started. Plans to do so on Status: Acute (4) Diabetes mellitus type 2, noninsulin dependent: Problem comment: A1c 7.8, new dx as of December 2024. Previously managed hyperglycemia with diet and exercise. Has been prescribed metformin but has not yet started this. Plans to start on Glucose checks bid Status: Acute (5) Cardiac arrhythmia: Problem comment: Given h/o, financial management consultant post operatively Status: Acute Total Time Spent Total Time Spent: Today I spent 60 minutes seeing the patient, discussing the patient with ER staff, reviewing Expanse and Epic notes/diagnostics, discussing the care plan with our team that includes social work, PT/OT, pharmacy, RT, detention and documenting my impressions and plan in the medical record.
[2025-01-08] MEDS: CEFAZOLIN 2 GM in 0.9 % SODIUM CHLORIDE Mini-bag 100 ML IVPB (15:59)
[2025-01-08] MEDS: ONDANSETRON 2 MG/ML inj 4 MG IVP (16:16)
[2025-01-08] MEDS: METOPROLOL TARTRATE 50 MG TABLET PO (20:33)
--- NOTE | 2025-01-08 22:47 | PC.NURSE ---
Patient arrived to floor after right shoulder surgery. Dressing clean, dry intact and patient reports no pain during the shift. Scheduled tylenol given and patient stating fingers are still numb. CMS of right extremity intact. Patient nauseated and 1 bout of emesis. PRN zofran administered. Able to eat/drink after and no nausea/vomiting. Patient reports headache that is relieved with scheduled tylenol and eating/drinking. Up, ambulating to the chair and bathroom with SBA. IV fluids turned off- PO intake adequate and patient voiding. Oxygen remained on patient after recovery and into the night for due to oxygen saturation <90%. Before bed, patient able to maintain O2 >90% without supplemental oxygen, but once she falls asleep O2 <88%. Alarms wake patient and able to recover independently. Otherwise vitally stable. Nursing to continue to monitor.
[2025-01-09 00:15] VITALS: BP 120/61; PULSE 55; PULSE 58; RESP 18; TEMP 36.8; O2SAT 93
[2025-01-09] MEDS: CEFAZOLIN 2 GM in 0.9 % SODIUM CHLORIDE Mini-bag 100 ML IVPB (00:29)
[2025-01-09] MEDS: ACETAMINOPHEN 500 MG TABLET 1000 MG PO ×2 (02:25→08:54)
[2025-01-09 02:36] VITALS: BP 127/45; PULSE 62; RESP 20; TEMP 36.6; O2SAT 93
[2025-01-09 06:34] LABS: Hematocrit* 41.7 % (33.0-51.0); Hemoglobin* 13.4 gm/dL (12.0-16.0); Mean Corpuscular HGB Conc 32 gm/dL (32-36); Mean Corpuscular Hemoglobin 31 pg (26-34); Mean Corpuscular Volume 95 fL (80-100); Platelet Count* 167 K/uL (140-440); Red Blood Count* 4.37 m/uL (4.00-5.20); White Blood Count* 8.31 K/uL (4.50-11.00)
[2025-01-09 06:42] LABS: Slide Review Reflex No
[2025-01-09 06:44] LABS: Potassium* 3.9 mmol/L (3.6-5.1); Sodium* 139 mmol/L (135-149)
[2025-01-09 06:47] LABS: Blood Urea Nitrogen* 13 mg/dL (7-30); Creatinine* 0.8 mg/dL (0.5-1.5); Est. Creatinine Clearance* 41.19; Estimated Glomerular Filt Rate 81 ml/min
[2025-01-09] MEDS: LEVOTHYROXINE 112 MCG TABLET PO (07:00)
--- NOTE | 2025-01-09 07:27 | PC.NURSE ---
END OF SHIFT NOTE: PT PLEASANT AND COOPERATIVE. A&Ox3. DENIES CP, SOB, N/V. AMBULATES WITH SBA. VSS ON 1.5L OF SUPPLEMENTAL O2 TO KEEP SPO2 >90%; AFEBRILE. OFF OF OXYGEN WITH SATURATIONS >90% PT REPORTS PAIN 3/10 WITH RELIEF FROM ACTIVE ICE, SUPPORT WITH PILLOWS AND MEDICATION (SEE EMAR). CALL LIGHT WITHIN PT?S REACH.
[2025-01-09] MEDS: HYDROmorphone 2 MG TABLET PO (07:28)
[2025-01-09 07:46] VITALS: BP 139/85; PULSE 66; RESP 18; TEMP 37.1; O2SAT 96
[2025-01-09 08:11] VITALS: PULSE 69
--- NOTE | 2025-01-09 08:44 | PM.ORPN ---
Subjective Subjective Time Seen by Provider: 07:45 Date Seen: 01/09/25 Principal diagnosis: Status post right reverse total shoulder arthroplasty Interval history: Janette feels her block is wearing off. She can feel pain in the anterior and posterior shoulder. She also has movement in feeling in her hand on the right. Ortho Exam Narrative Exam Narrative: Alert and oriented x3. Patient is in no acute distress. Converses without labored breathing. Hearing is grossly intact. Ambulates well. Examination of the right shoulder shows the dressing is intact. Soft tissue edema is present. Ecchymosis is present. No edema of the lower arm hand or fingers. Arm is in a sling. She is able to extend and flex her wrist and flex and extend her fingers. Sensation is present in the hand and fingers. No erythema or warmth or sign of infection. Const Vital Signs, click to edit/add: Vital Signs - 24 hr 01/08/25 08:52 01/08/25 08:55 01/08/25 09:00 Temperature Pulse Rate 53 L 50 L 49 L Pulse Rate [Left Pulse Oximeter] Pulse Rate [Right Pulse Oximeter] Respiratory Rate 16 16 16 Blood Pressure 147/61 H 145/84 H 130/66 Blood Pressure [Left Arm] Pulse Oximetry 96 92 97 Oxygen Delivery Method Nasal Cannula Nasal Cannula Nasal Cannula Oxygen Flow Rate 2 4 4 01/08/25 11:55 01/08/25 12:00 01/08/25 12:05 Temperature 97.8 F Pulse Rate 64 65 74 Pulse Rate [Left Pulse Oximeter] Pulse Rate [Right Pulse Oximeter] Respiratory Rate 12 16 22 Blood Pressure 136/67 134/65 116/52 L Blood Pressure [Left Arm] Pulse Oximetry 93 92 93 Oxygen Delivery Method OxyMask OxyMask OxyMask Oxygen Flow Rate 10 10 10 01/08/25 12:10 01/08/25 12:15 01/08/25 12:20 Temperature 97.6 F Pulse Rate 67 61 59 L Pulse Rate [Left Pulse Oximeter] Pulse Rate [Right Pulse Oximeter] Respiratory Rate 34 H 18 18 Blood Pressure 112/60 112/54 L 111/60 Blood Pressure [Left Arm] Pulse Oximetry 94 94 96 Oxygen Delivery Method OxyMask OxyMask OxyMask Oxygen Flow Rate 10 8 6 01/08/25 12:25 01/08/25 12:30 01/08/25 12:40 Temperature 97.7 F Pulse Rate 65 65 61 Pulse Rate [Left Pulse Oximeter] Pulse Rate [Right Pulse Oximeter] Respiratory Rate 18 18 18 Blood Pressure 104/75 103/58 L 122/68 Blood Pressure [Left Arm] Pulse Oximetry 96 95 92 Oxygen Delivery Method OxyMask Nasal Cannula OxyMask Nasal Cannula Oxygen Flow Rate 6 3 3 01/08/25 13:00 01/08/25 13:15 01/08/25 13:30 Temperature 97.7 F 97.4 F L 97.4 F L Pulse Rate 57 L 56 L 56 L Pulse Rate [Left Pulse Oximeter] Pulse Rate [Right Pulse Oximeter] Respiratory Rate 18 18 16 Blood Pressure 120/56 L 128/95 H 112/59 L Blood Pressure [Left Arm] Pulse Oximetry 91 94 94 Oxygen Delivery Method Nasal Cannula Nasal Cannula Nasal Cannula Oxygen Flow Rate 3 3 3 01/08/25 13:45 01/08/25 14:00 01/08/25 14:30 Temperature 97.5 F L Pulse Rate 54 L 57 L 63 Pulse Rate [Left Pulse Oximeter] Pulse Rate [Right Pulse Oximeter] Respiratory Rate 18 18 16 Blood Pressure 118/52 L 120/60 115/52 L Blood Pressure [Left Arm] Pulse Oximetry 93 93 93 Oxygen Delivery Method Nasal Cannula Nasal Cannula Nasal Cannula Oxygen Flow Rate 3 3 2 01/08/25 15:00 01/08/25 15:00 01/08/25 15:00 Temperature 98.5 F Pulse Rate 65 Pulse Rate [Left Pulse Oximeter] Pulse Rate [Right Pulse Oximeter] Respiratory Rate 18 18 18 Blood Pressure 131/64 Blood Pressure [Left Arm] Pulse Oximetry 92 92 Oxygen Delivery Method Nasal Cannula Nasal Cannula Oxygen Flow Rate 2 2 01/08/25 16:00 01/08/25 17:00 01/08/25 18:30 Temperature 97.7 F 98 F 98 F Pulse Rate 57 L 62 79 Pulse Rate [Left Pulse Oximeter] Pulse Rate [Right Pulse Oximeter] Respiratory Rate 22 18 18 Blood Pressure 144/59 H 151/62 H 117/53 L Blood Pressure [Left Arm] Pulse Oximetry 89 92 95 Oxygen Delivery Method Nasal Cannula Nasal Cannula Nasal Cannula Oxygen Flow Rate 0 2 1 01/09/25 00:15 01/09/25 00:15 01/09/25 00:15 Temperature Pulse Rate 55 L Pulse Rate [Left Pulse Oximeter] 58 L Pulse Rate [Right Pulse Oximeter] Respiratory Rate 18 18 Blood Pressure Blood Pressure [Left Arm] Pulse Oximetry 93 Oxygen Delivery Method Nasal Cannula Oxygen Flow Rate 1 01/09/25 00:15 01/09/25 02:36 01/09/25 07:46 Temperature 98.2 F 97.9 F Pulse Rate Pulse Rate [Left Pulse Oximeter] 58 L 62 Pulse Rate [Right Pulse Oximeter] Respiratory Rate 18 20 18 Blood Pressure Blood Pressure [Left Arm] 120/61 127/45 L Pulse Oximetry 93 93 96 Oxygen Delivery Method Nasal Cannula Room Air Room Air Oxygen Flow Rate 1.5 1.5 01/09/25 07:46 01/09/25 08:11 Temperature 98.8 F Pulse Rate 69 Pulse Rate [Left Pulse Oximeter] Pulse Rate [Right Pulse Oximeter] 66 Respiratory Rate 18 Blood Pressure Blood Pressure [Left Arm] 139/85 Pulse Oximetry 96 Oxygen Delivery Method Room Air Oxygen Flow Rate Assessment and Plan Assessment and plan (1) Status post reverse total arthroplasty of right shoulder: Problem details: 01/08/2025Kailey Status: Acute Assessment and Plan: Plan for discharge is to home when they meet discharge criteria. Patient will wear the sling for 6 weeks post surgery. They can take it off for comfort and for exercises. Activity: no external rotation of the operative shoulder past 0? x 6 weeks. Forward flexion and abduction of the shoulder is allowed as tolerated. They will work on range of motion of the elbow, wrist, fingers once the block has wore off on the operative extremity. Patient will attend outpatient physical therapy for the operative shoulder . For discharge, oxycodone and Tylenol for pain. Do not drive while on narcotic pain medication. Drive only when safe to do so, when they have normal use/function of the upper extremity, this will likely take 6 weeks. Patient will minimize and discontinue the narcotic as soon as possible. Remove dressing in 1 week. Dressing is waterproof. May shower. Surgical glue covers the wound. Do not scrub the wound. Expect swelling and bruising about the shoulder and upper extremity. Use of ice/active ice without restriction. Notify Orthopedics if swelling is excessive. notify Orthopedics with any questions or concerns. [phone] Return to Orthopedic clinic next week for a wound check Return to clinic in [address] Bonner. Sling is adjusted.
[2025-01-09] MEDS: POTASSIUM CHLORIDE 10 MEQ CAPSULE ER 20 MEQ PO (08:54)
[2025-01-09] MEDS: SENNOSIDES 1 TAB TABLET 2 TAB PO (08:54)
[2025-01-09] MEDS: METOPROLOL TARTRATE 50 MG TABLET PO (08:54)
[2025-01-09] MEDS: hydroCHLOROthiazide 12.5 MG CAPSULE PO (08:54)
[2025-01-09] MEDS: LOSARTAN POTASSIUM 50 MG TABLET PO (08:54)
== END 2025-01-09 09:22 | disposition home or self-care (01) ==
LOC: OR 07:30 → MEDSURG 07:40
PROVIDERS: PCP Nurse Practitioner Family; Visit Provider Orthopaedic Surgery
PROC: 0RRJ0JZ Replacement of Right Shoulder Joint with Synthetic Substitute, Open Approach (ICD-10-PCS; CPT 23472; principal; 2025-01-08 09:30)
DX: M75.101 Unspecified rotator cuff tear or rupture of right shoulder, not specified as traumatic (principal); M19.011 Primary osteoarthritis, right shoulder; G89.18 Other acute postprocedural pain; E11.9 Type 2 diabetes mellitus without complications; Z79.84 Long term (current) use of oral hypoglycemic drugs; I49.8 Other specified cardiac arrhythmias; I10 Essential (primary) hypertension; E03.9 Hypothyroidism, unspecified; J30.9 Allergic rhinitis, unspecified; E78.5 Hyperlipidemia, unspecified
CPT/HCPCS: 23472; 01638; 36415; 64415; 73030; 76942; 82565; 82962; 84132; 84295; 84520; 85027; 86703; 86803; 87340; 94761; 97110; 97165; A9270; C1713; C1776; J0665; J0690; J1100; J2250; J2405; J2704; J2795; J3010; J3490; J7120; L3670

== ENCOUNTER 2025-04-23 08:30 | Outpatient (RCR) | payer MEDICARE, OTHER, SELFPAY ==
--- NOTE | 2025-01-01 10:09 | OT.OPOE ---
OT Outpatient Ortho Eval OT Outpatient Ortho Eval* Start: 01/01/25 09:18 Freq: Status: Active Protocol: Document 01/01/25 09:18 [facility] (Rec: 01/01/25 09:59 [facility] [id number]) E-signed By Paty Lau OTR/L OT OP Ortho Eval Details Complexity Complexity Low Insurance Information Insurance Information Medicare B Other Insurance Outpatient History/Precautions Current Condition/Medical Diagnosis Referring Provider Dr. 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 511 shoulder instability (right) - M25.611 Date of Onset September of 2015 Medical Conditions HTN,Metal Implants,Arthritis Medical/Functional History Medical History Reviewed Yes Prior Level of Function/Mobility Indep with ADLs/IADLs at baseline Social History Employment Status Retired Ortho Subjective Subjective Subjective Pt reports she lives at home in multilevel home with spouse . She reports she has walk in shower w/ grab bars and shower chair. Pt reports she has handicap height toilet with vanity on left side and bidet attached. Pt's bedroom in upstairs with flight of stairs to go up with rails on both sides, however she can live on main level if needed. Pt reports she has supportive spouse who can assist with ADLs/IADLs as needed. Pain Assessment Pain Pain No Pain Comments 4/10 in R shoulder at rest Range of Motion and Strength Shoulder Range of Motion and Strength Shoulder Range of Motion and Strength BUE WNL for shoulder, elbow, wrist and digits OT Objective Data Sensation Sensation Assessment Summary Comments notes increased numbness in 4th and 5th digit in R hand OT Problems Problems Problems Decreased Strength,Pain, Sensory Sensitivity,Lifting, Gripping,Pinching Other Problems Writing,Opening Containers, Computer,Sleeping Patient Potential Good Assessment Assessment Assessment Patient is a 69 year old female presenting to the clinic for a Pre-op OT Evaluation. Patient was pleasant, alert, orientated, asked great questions in session, was an active listener to information presented and showed signs of motivation/willingness to follow the presented protocol/ Post-op Instructions & HEP. In session today, patient was provided with resources and education as well as given handouts on the following topics: home modifications/ suggested set-up, potential DME needs and where to purchase items, fall prevention, home safety. The patient was a pleasure to work with today and reported at the end of session feeling more prepared for upcoming surgery. Occupational Therapy Treatment Plan - OP Potential Rehabilitation Potential Good Set Goals Goals Set with Patient Yes Goals Goals 1. Patient will be able to properly don/doff her shoulder sling Independently. - goal met 2. Patient will demonstrate how to accurately perform her post-op HEP with use of handout (Modified Indep).- goal met Treatment Plan Treatment Plan Evaluation,Therapeutic Exercise,Self Care/Home Management,Education Expected Frequency 1x Week Expected Duration Comments 1 time evaluation and treat Home Program Home Program Home Program Initiated Home Program Specifics post op shoulder exercises for R shoulder Certification Certification Statement I Certify That: Therapy Services Provided, Therapy Plan Established, Therapy Plan Reviewed Certification Information Clinic ID # [id number] Initial Certification Date 01/01/25 Recertification Due Date 01/02/25 Provider Signature Required Yes Provider Signature Shows Agreement With POC & Medical Necessity Physician NPI Number Write NPI# Here Physician Comment/Change Comment or Changes Physician Signature & Date Requested Please Sign/Date Here
--- NOTE | 2025-01-21 16:32 | PT.OPEX ---
PT [place] Outpatient Eval PT [facility] Outpatient Eval Start: 01/21/25 12:55 Freq: Status: Active Protocol: Document 01/21/25 12:55 NARENDRA (Rec: 01/21/25 16:25 NARENDRA [id number]) E-signed By Stephany Martin DPT Physical Therapy Outpatient Evaluation Insurance Information Recert Due Date 04/21/25 Insurance Name Medicare B,Other; See Comments Insurance Information/Comments Medical Diagnosis s/p R reverse RSA 01/08/25 Treating Diagnosis s/p R reverse RSA 01/08/25 with R shoulder pain, impaired R shoulder ROM, impaired R shoulder mobility/strength, impaired functional use of R shoulder/UE currently restricted in a sling Subjective Subjective Patient reports having R reverse total shoulder surgery on 01/08/25. States she has been wearing a sling since her sugery. Pain has been minimal, tolerable. Not needing pain meds, tylenol lately. She was icing initially but hasn't been needing it lately. Sleep is interrupted at times but patient states it is more from being ill this past week. She had follow up with PA last Tue and went out to eat afterward. States she was sick for several days after this outing, stomach flu sx. Other than being sick, patient feels she is doing well after surgery. She has been doing hand/elbow ROM, elbow ext stretching, codmans regularly at home. Date of Last Physician Visit 01/16/25 Date of Surgery (If applicable) 01/08/25 Current Work Status Retired Precautions Treatment Precautions/Contraindications R UE sling s/p R reverse TSA Assessment Assessment/Impression Patient is a 69 year old female s/p R reverse TSA with R shoulder pain, impaired R shoulder ROM, impaired R shoulder mobility/ strength, impaired functional use of R shoulder/UE currently restricted in a sling. Pain has been tolerable, using tylenol and icing as needed. Patient has been wearing a sling after surgery. Patient able to move R UE some into flex, abd. ER to neutral. She can use R UE for some dressing and lower level activities like eating, brushing her teeth. R shoulder P/AAROM: flex 110 degrees, scap 105 degrees, IR 50 degrees, ER to neutral. Strength tested deferred post op. Able to perform supine P/ AAROM this session. Reviewed HEP. Initiated table slide flex and added to HEP. Tolerated well. Reviewed current restrictions/ precautions after surgery. Patient expressed understanding. Patient would benefit from skilled PT for pain/sx management, improved R shoulder ROM, improved R shoulder mobility/strength, return to functional use of R shoulder/UE, and establishment of HEP. Plan of Care Rehabilitation Potential Good Physical Therapy Goals 1. Decrease L shoulder pain to less than/equal to 3/10 with daily activities and with the progression of PT activities over the next 6-8 weeks. 2. Improve L shoulder PROM to WFL within 4-6 weeks to prepare for return to functional use of L shoulder/UE. 3. Improve L shoulder AROM to WFL within 8-10 weeks for return to functional use of L shoulder/ UE with daily/household activities. 4. Improve L shoulder/UE strength over the next 10-12 weeks for return to full functional use of L shoulder/UE with daily/ household activities. 5. Patient will be I with HEP within 12 weeks for progression toward above goals, ongoing self management of pain/sx, ongoing self improvements in ROM/strength/function, and for return to full functional use of L shoulder/UE with daily activities. Coordination/Communication With Referral Source Treatment Plan/Direct Interventions Manual Therapy,Therapeutic Exercises Frequency/Duration 1-2x/week Patient Will Be Discharged From Therapy Completion of LTG(s),Skills Plateau,Independent w/HEP, Independently Progressing Evaluation Billing Untimed Code Treatment Minutes 22 Complexity Moderate Certification Information Initial Certification Date 01/21/25 Ending Certification Date 04/21/25 Provider Signature Required Yes Provider Signature Shows Agreement With POC & Medical Necessity Physician NPI Number Write NPI# Here Physician Comment/Change : Physician Signature & Date Requested Please Sign/Date Here
== END 2025-08-21 23:59 | disposition home or self-care (01) ==
PROVIDERS: PCP Nurse Practitioner Family; Visit Provider Orthopaedic Surgery
DX: Z48.89 Encounter for other specified surgical aftercare (principal); M75.101 Unspecified rotator cuff tear or rupture of right shoulder, not specified as traumatic; M19.011 Primary osteoarthritis, right shoulder; Z96.611 Presence of right artificial shoulder joint; M25.511 Pain in right shoulder; Z51.89 Encounter for other specified aftercare
CPT/HCPCS: 97110; 97162; 97165; 97535; X5282